=== PATIENT | female | born 1975 | race African-American/Black ===

== ENCOUNTER 2017-05-14 10:32 | Inpatient (IN) | payer MEDICAID ==
[~2017-05-14] VITALS: Ht 160 cm; Wt 102.1 kg
[2017-05-14] MEDS ORDERED: ACETAMINOPHEN 325MG TABLET PO ONE (14:45)
[2017-05-14 14:49] LABS: BASOPHILS % 1.1 % (0.0-2.0); EOSINOPHILS % 1.3 % (0.0-5.0); MEAN CORPUSCULAR HEMOGLOBIN 19.1 pg (28.0-32.0); MEAN CORPUSCULAR VOLUME 61.9 fL (81.0-99.0); MEAN PLATELET VOLUME 7.8 fl (7.4-10.4); MONOCYTES % 4.6 % (2.0-8.0); PLATELET 306 x1000/uL (130-400); RED BLOOD CELL COUNT 3.43 mill/uL (4.2-5.4); RED CELL DISTRIBUTION WIDTH 19.5 % (11.6-14.6)
[2017-05-14 14:56] LABS: PROTHROMBIN TIME 10.5 sec (9.4-11.6)
[2017-05-14 14:58] LABS: HEMATOCRIT. 21.3 % (36.0-48.0); HEMOGLOBIN. 6.6 g/dL (12.0-16.0)
[2017-05-14 15:04] LABS: CARBON DIOXIDE 25 mEq/L (21-32); CHLORIDE 101 mEq/L (98-107)
[2017-05-14 15:13] LABS: HCG SCREEN NEGATIVE
[2017-05-14 15:17] LABS: CLARITY URINE CLOUDY (CLEAR); COLOR URINE ORANGE (YELLOW); GLUCOSE URINE NEGATIVE (NEGATIVE); KETONES URINE NEGATIVE (NEGATIVE); LEUKOCYTE ESTERASE URINE TRACE (NEGATIVE); NITRITE URINE NEGATIVE (NEGATIVE); OCCULT BLOOD URINE 3+ (NEGATIVE); PH URINE 5.5 (4.5-8.0); PROTEIN URINE 2+ (NEGATIVE); SPECIFIC GRAVITY URINE 1.017 (1.005-1.030); UROBILINOGEN URINE 0.2 E.U./dL (0.2-1.0)
[2017-05-14 15:31] LABS: PLATELET ESTIMATE NORMAL
[2017-05-14] MEDS ORDERED: CLONIDINE 0.1MG TABLET PO PRN (16:15)
[2017-05-14] MEDS ORDERED: MAGNESIUM/ALUMINUM HYDROXIDE/SIMETHICONE 30ML UDC PO PRN (16:15)
[2017-05-14] MEDS ORDERED: IPRATROPIUM/ALBUTEROL 0.5-3(2.5)MG/3ML NEB INH PRN (16:15)
[2017-05-14] MEDS ORDERED: NA PHOS,M-B/NA PHOS,DI-BA ENEMA 118ML PR PRN (16:15)
[2017-05-14] MEDS ORDERED: ONDANSETRON HCL 4MG/2ML VIAL IV PRN (16:15)
[2017-05-14] MEDS ORDERED: KETOROLAC 15MG/ML VIAL IV PRN (16:15)
[2017-05-14 17:00] VITALS: BP 137/85
[2017-05-14] MEDS ORDERED: BUSP30TA2 PO (17:27)
[2017-05-14] MEDS ORDERED: OXCA600T5 PO (17:27)
[2017-05-14] MEDS ORDERED: LISI2.5T47 PO (17:27)
[2017-05-14] MEDS ORDERED: SERT100T PO (17:27)
[2017-05-14] MEDS ORDERED: HYDR25TA PO (17:27)
[2017-05-14] MEDS: FERROUS SULFATE 300MG/5ML UDC PO SCH (18:10)
[2017-05-14 20:00] VITALS: BP 148/94
[2017-05-14] MEDS: FAMOTIDINE 20MG/2ML VIAL IV SCH (20:06)
[2017-05-14] MEDS: ACETAMINOPHEN 325MG TABLET PO PRN (20:06)
[2017-05-14] MEDS: DIPHENHYDRAMINE 50MG/ML VIAL IV PRN (20:36)
[2017-05-14] MEDS ORDERED: ZOLPIDEM TARTRATE 5MG TABLET PO PRN (21:00)
[2017-05-14 22:04] VITALS: BP 139/55
[2017-05-14 22:15] VITALS: BP 130/67
[2017-05-14 23:15] VITALS: BP 132/71
[2017-05-15] VITALS: BP 132/71
[2017-05-15] MEDS: DIPHENHYDRAMINE 50MG/ML VIAL IV PRN ×2 (00:17→07:56)
[2017-05-15] MEDS: ACETAMINOPHEN 325MG TABLET PO PRN (00:17)
[2017-05-15 00:39] VITALS: BP 128/68
[2017-05-15 04:00] VITALS: BP 107/65
[2017-05-15] MEDS: FAMOTIDINE 20MG/2ML VIAL IV SCH (07:55)
[2017-05-15] MEDS: FERROUS SULFATE 300MG/5ML UDC PO SCH (07:55)
[2017-05-15 08:34] LABS: BASOPHILS % 1.6 % (0.0-2.0); EOSINOPHILS % 1.6 % (0.0-5.0); HEMATOCRIT. 23.9 % (36.0-48.0); HEMOGLOBIN. 7.3 g/dL (12.0-16.0); LYMPHOCYTES % 13.3 % (20.0-50.0); MEAN CORPUSCULAR HEMOGLOBIN 19.3 pg (28.0-32.0); MEAN CORPUSCULAR VOLUME 62.8 fL (81.0-99.0); MEAN PLATELET VOLUME 8.2 fl (7.4-10.4); MONOCYTES % 4.6 % (2.0-8.0); NEUTROPHILS % 78.9 % (40.0-76.0); PLATELET 331 x1000/uL (130-400); RED BLOOD CELL COUNT 3.81 mill/uL (4.2-5.4); RED CELL DISTRIBUTION WIDTH 18.9 % (11.6-14.6)
[2017-05-15 09:05] LABS: CARBON DIOXIDE 27 mEq/L (21-32); CHLORIDE 102 mEq/L (98-107)
[2017-05-15 10:47] VITALS: BP 117/74
== END 2017-05-15 11:10 | disposition home or self-care (01) | DRG 532 ==
LOC: ER 11:28 → EDBEDREQ 15:21 → ENRESERV 15:42 → 7WST 16:36
PROVIDERS: ADMIT Internal Medicine; ATTEND Internal Medicine
PROC: 30233N1 Transfusion of Nonautologous Red Blood Cells into Peripheral Vein, Percutaneous Approach (ICD-10-PCS; principal; 2017-05-14)
DX: D25.9 Leiomyoma of uterus, unspecified (principal); E87.1 Hypo-osmolality and hyponatremia; I10 Essential (primary) hypertension; E66.01 Morbid (severe) obesity due to excess calories; E87.6 Hypokalemia; F17.200 Nicotine dependence, unspecified, uncomplicated; N92.0 Excessive and frequent menstruation with regular cycle; Z68.39 Body mass index [BMI] 39.0-39.9, adult; F32.9 Major depressive disorder, single episode, unspecified; Z88.2 Allergy status to sulfonamides
CPT/HCPCS: 36415; 76830; 76856; 80053; 81001; 83690; 84703; 85025; 85610; 86850; 86900; 86920; 99285; J1200; J3490; P9016

== ENCOUNTER 2017-08-12 19:39 | Emergency (ER) | payer MEDICAID ==
[~2017-08-12] VITALS: Ht 160 cm; Wt 146.0 kg
[~2017-08-12 19:39] MED LIST: BUSP30TA2 PO; HYDR25TA PO; LISI2.5T47 PO; OXCA600T5 PO; SERT100T PO
[2017-08-12 23:24] LABS: BASOPHILS % 1.7 % (0.0-2.0); EOSINOPHILS % 1.6 % (0.0-5.0); HEMATOCRIT. 31.5 % (36.0-48.0); HEMOGLOBIN. 9.6 g/dL (12.0-16.0); LYMPHOCYTES % 33.2 % (20.0-50.0); MEAN CORPUSCULAR HEMOGLOBIN 21.9 pg (28.0-32.0); MEAN CORPUSCULAR VOLUME 71.9 fL (81.0-99.0); MEAN PLATELET VOLUME 7.8 fl (7.4-10.4); MONOCYTES % 4.1 % (2.0-8.0); NEUTROPHILS % 59.4 % (40.0-76.0); PLATELET 339 x1000/uL (130-400); RED BLOOD CELL COUNT 4.38 mill/uL (4.2-5.4); RED CELL DISTRIBUTION WIDTH 19.8 % (11.6-14.6)
[2017-08-12 23:25] LABS: CHLORIDE 107 mEq/L (98-107)
[2017-08-12 23:26] LABS: CLARITY URINE CLEAR (CLEAR); COLOR URINE ORANGE (YELLOW); KETONES URINE NEGATIVE (NEGATIVE); LEUKOCYTE ESTERASE URINE 1+ (NEGATIVE); NITRITE URINE NEGATIVE (NEGATIVE); OCCULT BLOOD URINE 3+ (NEGATIVE); PH URINE 5.5 (4.5-8.0); PROTEIN URINE NEGATIVE (NEGATIVE); SPECIFIC GRAVITY URINE 1.011 (1.005-1.030); UROBILINOGEN URINE 0.2 E.U./dL (0.2-1.0)
[2017-08-12 23:28] LABS: PROTHROMBIN TIME 10.5 sec (9.4-11.6)
[2017-08-12 23:30] LABS: CARBON DIOXIDE 26 mEq/L (21-32)
[2017-08-12 23:37] LABS: B-HCG QUANTITATIVE < 1 mIU/mL (<3)
[2017-08-13 00:45] VITALS: BP 159/88
== END 2017-08-13 01:10 | disposition home or self-care (01) ==
LOC: ER 21:05
DX: D50.9 Iron deficiency anemia, unspecified (principal); N92.0 Excessive and frequent menstruation with regular cycle; D25.0 Submucous leiomyoma of uterus; Z88.2 Allergy status to sulfonamides; F17.200 Nicotine dependence, unspecified, uncomplicated; I10 Essential (primary) hypertension; E66.9 Obesity, unspecified
CPT/HCPCS: 36415; 76856; 80053; 81001; 81025; 84702; 85025; 85610; 86850; 86900; 99285

== ENCOUNTER 2017-10-10 15:32 | Emergency (ER) | payer MEDICAID ==
[~2017-10-10] VITALS: Ht 160 cm; Wt 100.0 kg
[2017-10-10 22:01] LABS: CLARITY URINE CLEAR (CLEAR); COLOR URINE YELLOW (YELLOW); KETONES URINE NEGATIVE (NEGATIVE); LEUKOCYTE ESTERASE URINE NEGATIVE (NEGATIVE); NITRITE URINE NEGATIVE (NEGATIVE); OCCULT BLOOD URINE NEGATIVE (NEGATIVE); PH URINE 5.5 (4.5-8.0); PROTEIN URINE NEGATIVE (NEGATIVE); UROBILINOGEN URINE 0.2 E.U./dL (0.2-1.0)
[2017-10-10 22:08] LABS: BASOPHILS % 0.7 % (0.0-2.0); EOSINOPHILS % 1.3 % (0.0-5.0); HEMATOCRIT. 33.1 % (36.0-48.0); HEMOGLOBIN. 10.6 g/dL (12.0-16.0); LYMPHOCYTES % 25.8 % (20.0-50.0); MEAN CORPUSCULAR HEMOGLOBIN 25.8 pg (28.0-32.0); MEAN CORPUSCULAR VOLUME 80.3 fL (81.0-99.0); MEAN PLATELET VOLUME 7.5 fl (7.4-10.4); MONOCYTES % 7.8 % (2.0-8.0); NEUTROPHILS % 64.4 % (40.0-76.0); PLATELET 287 x1000/uL (130-400); RED BLOOD CELL COUNT 4.13 mill/uL (4.2-5.4); RED CELL DISTRIBUTION WIDTH 25.4 % (11.6-14.6)
[2017-10-10 22:11] LABS: CHLORIDE 104 mEq/L (98-107)
[2017-10-10 22:57] LABS: PLATELET ESTIMATE NORMAL
[2017-10-11 01:00] VITALS: BP 137/87
== END 2017-10-11 01:01 | disposition home or self-care (01) ==
LOC: ER 17:57
DX: D25.9 Leiomyoma of uterus, unspecified (principal); D50.9 Iron deficiency anemia, unspecified; I10 Essential (primary) hypertension; Z88.2 Allergy status to sulfonamides; Z97.5 Presence of (intrauterine) contraceptive device; F17.210 Nicotine dependence, cigarettes, uncomplicated
CPT/HCPCS: 36415; 76830; 76856; 80053; 81003; 81025; 85025; 87210; 99285; Z7610

== ENCOUNTER 2018-08-22 05:37 | Emergency (ER) | payer MEDICAID ==
[~2018-08-22] VITALS: Ht 165.1 cm; Wt 89.4 kg
[~2018-08-22 05:37] MED LIST changes: +CALC-61 MT; +FERR325T6 MT; +NAPR-681 MT; -OXCA600T5 PO
[2018-08-22 09:03] LABS: HEMATOCRIT. 29.5 % (36.0-48.0); HEMOGLOBIN. 9.4 g/dL (12.0-16.0); MEAN CORPUSCULAR HEMOGLOBIN 23.4 pg (28.0-32.0); MEAN CORPUSCULAR VOLUME 73.7 fL (81.0-99.0); MEAN PLATELET VOLUME 8.5 fl (7.4-10.4); PLATELET 369 x1000/uL (130-400); RED BLOOD CELL COUNT 4.01 mill/uL (4.2-5.4); RED CELL DISTRIBUTION WIDTH 24.3 % (11.6-14.6)
[2018-08-22 09:07] LABS: CHLORIDE 109 mEq/L (98-107)
[2018-08-22 09:41] LABS: PLATELET ESTIMATE NORMAL
[2018-08-22 10:45] LABS: CLARITY URINE CLEAR (CLEAR); COLOR URINE YELLOW (YELLOW); KETONES URINE NEGATIVE (NEGATIVE); LEUKOCYTE ESTERASE URINE NEGATIVE (NEGATIVE); NITRITE URINE NEGATIVE (NEGATIVE); OCCULT BLOOD URINE 3+ (NEGATIVE); PROTEIN URINE NEGATIVE (NEGATIVE); SPECIFIC GRAVITY URINE 1.016 (1.005-1.030); UROBILINOGEN URINE 0.2 E.U./dL (0.2-1.0)
[2018-08-22 11:35] LABS: *AMPHETAMINES SCREEN URINE NEGATIVE (NEGATIVE); *BENZODIAZEPINES SCREEN URINE NEGATIVE (NEGATIVE); *COCAINE SCREEN URINE NEGATIVE (NEGATIVE); PHENCYCLIDINE URINE SCREEN NEGATIVE (NEGATIVE)
[2018-08-22 11:36] LABS: METHADONE URINE SCREEN NEGATIVE (NEGATIVE); OPIATES URINE SCREEN NEGATIVE (NEGATIVE)
[2018-08-22 11:46] LABS: *BARBITURATES SCREEN URINE NEGATIVE (NEGATIVE)
[2018-08-22 11:50] LABS: CANNABINOID URINE SCREEN PRESUMTIVE POSITIVE (NEGATIVE)
[2018-08-22] MEDS ORDERED: LORAZEPAM 0.5MG TABLET PO ONE (21:45)
[2018-08-23] MEDS ORDERED: MAGNESIUM/ALUMINUM HYDROXIDE/SIMETHICONE 30ML UDC PO STA ×2 (01:44→21:07)
[2018-08-23] MEDS ORDERED: VISCOUS LIDOCAINE 2% 15 ML UDC PO STA ×2 (01:44→21:07)
[2018-08-23] MEDS ORDERED: LORAZEPAM 1MG TABLET PO ONE ×3 (01:45→18:15)
[2018-08-23] MEDS ORDERED: LORAZEPAM 2MG/ML CPJ IV ONE (11:45)
[2018-08-23] MEDS ORDERED: LORAZEPAM 1MG TABLET ONE (18:16)
[2018-08-23] MEDS ORDERED: DICYCLOMINE 10 MG/5 ML ORAL SYR PO STA (21:07)
[2018-08-23] MEDS ORDERED: LORAZEPAM 1MG TABLET PO SCH (22:22)
[2018-08-24 01:18] VITALS: BP 138/73
== END 2018-08-24 01:28 | disposition home or self-care (01) ==
LOC: ER 06:22
DX: I80.9 Phlebitis and thrombophlebitis of unspecified site (principal); F12.10 Cannabis abuse, uncomplicated; F17.200 Nicotine dependence, unspecified, uncomplicated; D64.9 Anemia, unspecified; Z98.890 Other specified postprocedural states; Z79.899 Other long term (current) drug therapy; Z88.2 Allergy status to sulfonamides
CPT/HCPCS: 36415; 76881; 80305; 81025; 93971; 99284